=== PATIENT | female | born 2000 | race American Indian/Alaskan Native ===

== ENCOUNTER 2022-04-25 17:31 | Emergency (ER) | payer MEDICAID ==
[2022-04-25 18:14] VITALS: BP 111/62
== END 2022-04-26 08:40 | disposition left against medical advice (07) ==
LOC: ED 17:31
DX: O9A.211 Injury, poisoning and certain other consequences of external causes complicating pregnancy, first trimester (principal); Z53.21 Procedure and treatment not carried out due to patient leaving prior to being seen by health care provider; Z3A.11 11 weeks gestation of pregnancy